=== PATIENT | male | born 1950 | race Caucasian/White ===

== ENCOUNTER 2018-01-08 11:01 | Outpatient (CLI) | payer MEDICARE ==
[~2018-01-08] VITALS: Ht 172.7 cm; Wt 79.5 kg
--- NOTE | ~2018-01-08 | HEMODYNAMI ---
PATIENT:KIN THOMASON MEDICAL RECORD: [id number] : 48 LOCATION:[facility] ADMISSION DATE: 01/08/18 Generatedon:01/08/201814:28 Patient name: KIN THOMASON Patient #: [id number] SSN: DO B: 1950 Date of study: 01/08/2018 Page: Of Hemodynamic Procedure Report Patient Data Patient Demographics Procedure consent was obtained First Name: KIN Gender: Male Last Name: PADDY : 1950 [facility] Initial: GORGE Age: 67 year(s) Patient #: [id number] Race: Unknown Additional ID: [id number] Contact details [address]: [address] [place] [address] State: [place] City: [place] Zip code: [address] Past Medical History Allergies: No known allergies Admission Admission Data Admission Date: 01/08/2018 Admission Time: 11:01 Height (in.): 68 BSA: 1.93 (m2) Height (cm.): 172.72 BMI: 26.61 (kg/m2) Weight (lbs.): 175 Weight (kg.): 79.38 Procedure Procedure Types Cath Procedure Diagnostic Procedure LHC LHC w/Coronaries Sedation Charges Moderate Sedation up to 30 minutes PCI Procedure Coronary Stent Coronary Stent Initial Procedure Description Procedure Date Procedure Date: 01/08/2018 Procedure Start Time: 13:40 Procedure End Time: 14:24 Procedure Staff Name Function Onofre Nelson MD Performing Physician Marian Hope RT Monitor Trevon Mcdaniels RN Nurse Froylan Santana RN Nurse Margareth Poe RT Scrub Procedure Data Cath Procedure Fluoroscopy Diagnostic fluoroscopy Total fluoroscopy Time: time: 16.6 min 16.6 min Diagnostic fluoroscopy Total fluoroscopy dose: dose: 1594 mGy 1594 mGy Contrast Material Contrast Material Type Amount (ml) Isovue 300 148 Entry Location Entry Primary Successful Side Size Upsize Upsize Entry Closure Sharif ccessful Closure Location (Fr) 1 (Fr) 2 (Fr) Remarks Device Remarks Radial Right 6 Fr Mechanical artery Short Compression Femoral Right 6 Fr Exoseal artery Short Estimated blood loss: 5 ml Diagnostic catheters Device Type Used For End Catheter Placement DIAGNOSTIC [place] 110cm 5 Multi-vessel Fr catheter ([id number]) Angiography DIAGNOSTIC JL 3.5 5Fr Left Coronary catheter ([id number]) Angiography Procedure Complications No complications Procedure Medications Medication Administration Route Dosage Oxygen etCO2 Nasal cannula 2 l/min Heparin Flush Bag added to field 2 bags (1000units/500ml NS) 0.9% NaCl I.V. 100 ml/hr Radial Cocktail added to field 1 syringe (Verapomil 2mg/Nitro 400mcg/Heparin 1500units) Fentanyl I.V. 50 mcg Versed I.V. 1 mg Radial Cocktail I.A. 1 syringe (Verapomil 2mg/Nitro 400mcg/Heparin 1500units) Fentanyl I.V. 50 mcg Versed I.V. 1 mg Fentanyl I.V. 50 mcg Fentanyl I.V. 50 mcg Heparin Bolus I.V. 4000 units Integrilin (Bolus I.V. 7.3 ml 2mg/ml) Brilinta P.O. 180 mg Integrilin (Bolus wasted 2.7 ml 2mg/ml) Hemodynamics Rest BSA: 1.93 (m2) O2 Consumption: Estimated: 214.57 (ml/min) O2 Consumption indexed : Estimated:111.18 (ml/min/m) Heart Rate: 57 (bpm) Pressure Samples Time Site Value (mmHg) Purpose Heart Use Rate(bpm) 13:45 LV 103/34,13 Snapshot 60 13:45 AO 95/58(76) Pullback 65 13:45 LV 90/5,16 Pullback 65 Gradients Valve Time Site 1 Site 2 Mean SEP/DFP Peak To Heart Use (mmHg) (sec/min) Peak Rate (mmHg) (bpm) Aortic 13:45 LV AO 0 13 0 65 90/5,16 95/58(76) Calculations Valve P-P Mean Valve Index Valve Source Name Gradient Area Flow (cm2) Aortic 0 0 0 0 Snapshots Pre Cath Intra NCS Post Cath Vital Signs Time Heart Resp SPO2 etCO2 NIBP (mmHg) Rhythm Pain Sedation Rate (ipm) (%) (mmHg) Status Level (bpm) 13:27:00 56 16 99 0 141/80(110) NSR 0 (11) 10(A) , No pain 13:31:04 54 13 99 0 117/80(93) NSR 0 (11) 10(A) , No pain 13:35:12 54 10 100 29.9 134/74(108) NSR 0 (11) 10(A) , No pain 13:39:24 58 14 98 13.5 99/67(75) NSR 0 (11) 10(A) , No pain 13:43:27 55 10 99 29.9 108/68(86) NSR 0 (11) 10(A) , No pain 13:47:39 73 17 99 14.2 100/54(74) NSR 0 (11) 10(A) , No pain 13:51:47 71 16 97 11.9 107/49(67) NSR 0 (11) 10(A) , No pain 13:55:59 77 18 99 38.1 109/49(80) NSR 0 (11) 10(A) , No pain 14:00:09 73 16 99 39.6 105/57(86) NSR 0 (11) 10(A) , No pain 14:05:06 67 17 100 40.4 119/66(83) NSR 0 (11) 10(A) , No pain 14:09:18 70 17 100 22.4 110/61(103) NSR 0 (11) 10(A) , No pain 14:13:28 69 16 98 40.4 106/56(67) NSR 0 (11) 10(A) , No pain 14:17:33 65 16 100 9.7 104/69(90) NSR 0 (11) 10(A) , No pain 14:23:46 64 16 94 0 116/71(91) NSR 0 (11) 10(A) , No pain Medications Time Medication Route Dose Verified Delivered Reason Not es Effectiveness by by 13:31:41 Oxygen etCO2 2 l/min Onofre Lester Per physician Nasal St Mitch Mcdaniels RN cannula 13:31:49 Heparin Flush added 2 bags Onofre Lester used for Bag to [facility] Mitch Mcdaniels RN procedure (1000units/500ml field NS) 13:31:57 0.9% NaCl I.V. 100 Onofre Lester Per physician ml/hr [facility] Mitch Mcdaniels RN, MD 13:35:11 Fentanyl I.V. 50 mcg Onofre Lester for sedation [facility] Mitch Mcdaniels RN, MD 13:35:17 Versed I.V. 1 mg Onofre Lester for sedation [facility] Mitch Mcdaniels RN, MD 13:42:04 Radial Cocktail added 1 Onfore Lester used for (Verapomil to syringe [facility] Mitch Mcdaniels sheet metal contractor 2mg/Nitro field GRAMAJO 400mcg/Heparin 1500units) 13:44:21 Radial Cocktail I.A. 1 Onofre Onofre for (Verapomil syringe [facility] Meyer vasodilation 2mg/Nitro MD GRAMAJO 400mcg/Heparin 1500units) 13:46:01 Fentanyl I.V. 50 mcg Onofre Lester for sedation [facility] Mitch Mcdaniels RN, MD 13:46:05 Versed I.V. 1 mg Onofre Lester for sedation [facility] Mitch Mcdaniels RN, MD 14:00:16 Heparin Bolus I.V. 4000 Onofre Longoriay for units [facility] Mitch Mcdaniels RN anticoagulation 14:00:29 Integrilin I.V. 7.3 ml Onofre Lester for (Bolus 2mg/ml) [facility] Mitch Mcdaniels RN antiplatelet MD therapy 14:04:52 Fentanyl I.V. 50 mcg Onofre Lester for sedation St Mitch Mcdaniels RN, MD 14:18:01 Fentanyl I.V. 50 mcg Onofre Lester for sedation [facility] Mitch Mcdaniels RN, MD 14:24:55 Brilinta P.O. 180 mg Onofre Lester for [facility] Mitch Mcdaniels RN antiplatelet MD therapy 14:25:56 Integrilin wasted 2.7 ml Onofre Lester for (Bolus 2mg/ml) [facility] Mitch Mcdaniels RN antiplatelet MD therapy Procedure Log Time Note 13:24:42 Patient Weight : 175 lbs 13:24:50 Patient Height : 68 inches 13:25:22 Diagnostic Cath status Elective 13:25:25 Marian Hope RT(R) sent for patient. Start room use. 13:25:26 Time tracking: Regular hours (M-F 7:00 - 5:00) 13:25:32 Plan of Care:Hemodynamics will remain stable., Cardiac rhythm will remain stable., Comfort level will be maintained., Respiratory function will remain adequate., Patient/ family verbilizes understanding of procedure., Procedure tolerated without complication., Recovers from procedure without complications.. 13:25:36 Patient received from Pre/Post Procedure Room to [facility] 2 Alert and oriented. Tansferred to table in Supine position. 13:25:38 Warm blankets applied, and brian hugger turned on for patient comfort. 13:25:38 Correct patient and procedure confirmed by team. 13:25:40 Signed procedure consent form obtained from patient. 13:25:41 ECG and BP/O2 sat monitors applied to patient. 13:25:43 Vital chart was started 13:26:45 Baseline sample Acquired. 13:26:52 Rhythm: sinus rhythm 13:26:54 Full Disclosure recording started 13::33 H&P Date Dictated: 01/03/2018 Within 30 days and on chart., H&P Addendum completed by physician on day of procedure. (MUST COMPLETE FOR ALL OUTPATIENTS). 13:27:35 Pre-procedure instructions explained to patient. 13:27:37 Family in waiting room. 13:27:39 Patient NPO since Midnight. 13:27:46 Patient allergic to No known allergies 13:27:50 Is the patient allergic to Iodine/contrast media? No. 13:27:51 Was the patient premedicated? Yes 13:27:53 Is patient on blood thinner?No 13:27:55 Patient diabetic? Yes. 13:27:57 If diabetic: On Metformin? Yes 13:28:00 If on Metformin: Last Dose? 01/07/2018 13:28:05 Snore? Yes 13:28:06 Sleep apnea? No 13:28:10 Dentures? No ? 13:28:24 IV patent on arrival in right antecubital with 0.9% NaCl at O. 13:28:28 Lab results completed and on chart. 13:28:32 Right Radial & Right Groin area was prepped with chlora-prep and draped in sterile fashion 13:28:33 Alarms reviewed by R. N. 13:28:34 Sharps counted by scrub and verified by R.N. 13:28:35 Physician paged 13:31:41 Oxygen 2 l/min etCO2 Nasal cannula was administered by Trevon Mcdaniels RN; Per physician; 13:31:49 Heparin Flush Bag (1000units/500ml NS) 2 bags added to field was administered by Trevon Mcdaniels RN; used for procedure; 13:31:57 0.9% NaCl 100 ml/hr I.V. was administered by Trevon Mcdaniels RN; Per physician; 13:32:01 Physician arrived 13:32:01 --------ALL STOP TIME OUT------ 13:32:03 Final Timeout: patient, procedure, and site verified with staff and physician. All members of the team are in agreement. 13:32:05 Right Radial & Right Groin site verified by team. 13:32:08 Physical assessment completed. ASA score P 2 - A patient with mild systemic disease as per Onofre Nelson MD. 13:32:11 Sedation plan: IV Moderate Sedation Medication:Versed, Fentanyl 13:32:36 Use device set Radial Dx or PCI 13:32:37 ACIST Syringe (64901) opened to sterile field. 13:32:37 Medline Cath Pack ([id number]) opened to sterile field. 13:32:38 Bag Decanter (2002S) opened to sterile field. 13:32:38 DIAGNOSTIC WIRE .035 260cm J wire (809712) opened to sterile field. 13:32:39 ACIST Hand Control (29877) opened to sterile field. 13:32:39 ACIST Manifold (24836) opened to sterile field. 13:32:40 Tegaderm 4 x 4 (1626W) opened to sterile field. 13:32:41 MBrace Wrist Support ([id number]) opened to sterile field. 13:32:43 SHEATH 6Fr Prelude Radial ([id number]) opened to sterile field. 13:35:11 Fentanyl 50 mcg I.V. was administered by Trevon Mcdaniels RN; for sedation; 13:35:17 Versed 1 mg I.V. was administered by Trevon Mcdaniels RN; for sedation; 13:39:04 Zero performed for pressure channel P1 13:40:46 Procedure started. 13:40:53 Local anesthetic to right radial artery with Lidocaine 2% by Onofre Nelson MD.INITIAL ACCESS ONLY 13:41:22 A 6 Fr Short sheath was inserted into the Right Radial artery 13:42:04 Radial Cocktail (Verapomil 2mg/Nitro 400mcg/Heparin 1500units) 1 syringe added to field was administered by Trevon Mcdaniels RN; used for procedure; 13:44:21 Radial Cocktail (Verapomil 2mg/Nitro 400mcg/Heparin 1500units) 1 syringe I.A. was administered by Onofre Nelson MD; for vasodilation; 13:44:23 A DIAGNOSTIC [place] 110cm 5 Fr catheter (523491) was advanced over the wire and used for Multi-vessel Angiography. 13:45:41 LV hemodynamics recorded. 13:45:42 LV gram done using MONTANEZ 13:45:45 Injector settings: Ml/sec: 5, Volume: 15, 13:45:53 EF : 55 % 13:46:01 Fentanyl 50 mcg I.V. was administered by Trevon Mcdaniels RN; for sedation; 13:46:05 Versed 1 mg I.V. was administered by Trevon Mcdaniels RN; for sedation; 13:46:15 RCA angiography performed. 13:46:18 Injector settings: Ml/sec: 3, Volume: 6, 13:47:53 Catheter removed. 13:48:51 A DIAGNOSTIC JL 3.5 5Fr catheter ([id number]) was advanced over the wire and used for Left Coronary Angiography. 13:50:30 Catheter removed. unable to cannulate vessel. 13:50:54 GUIDE 6FR EBU 3.5 catheter ([id number]) opened to sterile field. 13:51:37 LCA angiography performed. 13:51:46 Injector settings: Ml/sec: 3, Volume: 6, 13:53:09 Catheter removed. 13:53:10 Proceeding to intervention. 13:53:18 INFLATOR Merit BasixCompak (SA6236) opened to sterile field. 13:53:28 WHISPER 300cm guide wire ([id number]) opened to sterile field. 13:53:42 GUIDE 6FR HS I catheter (LA6HSI) opened to sterile field. 13:53:51 6 Fr hs 1 guide catheter was inserted over the wire 13:57:29 Guide Catheter removed. unable to cannulate vessel. 13:57:56 GUIDE 6FR AR 1.0 catheter (MO8YB47) opened to sterile field. 14:00:16 Heparin Bolus 4000 units I.V. was administered by Trevon Mcdaniels RN; for anticoagulation; 14:00:29 Integrilin (Bolus 2mg/ml) 7.3 ml I.V. was administered by Trevon Mcdaniels RN; for antiplatelet therapy; 14:02:30 6 Fr ar 1 guide catheter was inserted over the wire 14:02:35 Guide Catheter removed. unable to cannulate vessel. 14:02:49 SHEATH 6Fr Prelude ([id number]) opened to sterile field. 14:03:08 Local anesthetic to right femoral artery with Lidocaine 2% by Onofre Nelson MD.ADDITIONAL ACCESS 14:03:22 A 6 Fr Short sheath was inserted into the Right Femoral artery 14:04:02 6 Fr ar 1 guide catheter was inserted over the wire 14:04:52 Fentanyl 50 mcg I.V. was administered by Trevon Mcdaniels RN; for sedation; 14:07:55 whisper wire advanced. 14:12:40 CHOICE PT Extra Support J 300cm guide wire ([id number]) opened to sterile field. 14:13:32 whisper exchanged for choice pt extra support 14:16:07 Inflate balloon Inflation number: 1 A EMERGE OTW 3.0 x 15 balloon ([id number]) was prepped and advanced across the Mid RCA, then inflated to 10 ASIM for 0:30 (min:sec). 14:16:39 Inflation number: 1 The EMERGE OTW 3.0 x 15 balloon ([id number]) was reinflated across the Prox RCA, to 10 ASIM for 0:30 (min:sec). 14:17:25 Balloon removed over the wire. 14:18:01 Fentanyl 50 mcg I.V. was administered by Trevon Mcdaniels RN; for sedation; 14:20:22 Place stent Inflation Number: 2 A INTEGRITY OTW 3.5 X 15 stent ([id number]) was prepped and advanced across the Prox RCA. The stent was deployed at 14 ASIM for 0:30 (min:sec). 14:20:27 Stent catheter was removed intact over wire. 14:20:29 Wire removed. 14:20:30 Guide catheter removed. 14:20:34 TR BAND Standard ([id number]) opened to sterile field. 14:20:41 EXOSEAL 6Fr (EX600) opened to sterile field. 14:21:09 Sheath removed intact; hemostasis achieved with Exoseal to the Right Femoral artery. 14:21:17 Sheath removed intact; hemostasis achieved with Mechanical Compression to the Right Radial artery. 14:21:19 Procedure ended.(Physican Out) 14:: Fluoroscopy time 16.60 minutes. :: Fluoroscopy dose: 1594 mGy 14:22:26 Flurop Dose total: 1594 14:23: Contrast amount:Isovue 300 148ml. 14:23:04 Sharps counted by scrub and verified by R.N. 14:23:06 TR band inflated with 10cc of air. 14:23:08 Insertion/operative site no bleeding no hematoma. 14:23:19 Post-op/insertion site Right Femoral artery dressed using a 4 x 4 and Tegaderm. 14:23:24 Post right radial artery:stable 14:23:25 Post Procedure Pulses reassessed and unchanged 14:23:29 Post procedure rhythm: unchanged. 14:23:31 Estimated blood loss: 5 ml 14::33 Post procedure instruction explained to patient.Patient verbalizes understanding. 14::33 Patient needs reinforcement of post procedure teaching. 14::54 Procedure type changed to Cath procedure, Diagnostic procedure, LHC, LHC w/Coronaries, Sedation Charges, Moderate Sedation up to 30 minutes, PCI procedure, Coronary Stent, Coronary Stent Initial 14::54 Procedure and supply charges have been captured, reviewed, submitted and are correct. 14:23:59 Procedure Complication : No complications 14:24: Vital chart was stopped 14:24:02 See physician's report for complete and final results. 14:24:04 Report given to Pre/Post Procedure Room. 14:24:07 Patient transfered to Pre/Post Procedure Room with Stretcher. 14:24:10 Procedure ended. 14:24:10 Full Disclosure recording stopped 14:24:47 ACC-PCI Only Patient was given prescriptions, or instructed by Onofre Nelson MD to start/continue the following medications upon discharge: Brilinta 14:24:51 End room use (Document Last) 14:24:55 Brilinta 180 mg P.O. was administered by Trevon Mcdaniels RN; for antiplatelet therapy; 14:25:56 Integrilin (Bolus 2mg/ml) 2.7 ml wasted was administered by Trevon Mcdaniels RN; for antiplatelet therapy; Intervention Summary Intervention Notes Time ActionType Lesion and Equipment Action# Pressure Duration Attributes Used 14:16:07 Inflate Mid RCA EMERGE OTW 1 10 00:30 balloon 3.0 x 15 balloon ([id number]) 14:16:39 Reinflate Prox RCA EMERGE OTW 1 10 00:30 balloon 3.0 x 15 balloon ([id number]) 14:20:22 Place stent Prox RCA INTEGRITY 2 14 00:30 OTW 3.5 X 15 stent ([id number]) Device Usage Item Name Manufacture Quantity Catalog Number Hospital Part Current Minimal Lot# / Charge Number Stock Stock Serial# Code ACIST Syringe Acist 1 33720 538246 782923 592453 20 (95334) Medical Systems Inc Medline Cath Cardinal 1 [id number] 546647 98766 601371 5 Pack Health ([id number]) Bag Decanter Microtek 1 035331 50907 105012 5 () Medical Inc. DIAGNOSTIC WIRE St Zay 1 548894 690251 599220 929466 30 .035 260cm J wire (656522) ACIST Hand Acist 1 40375 515411 033754 966234 5 Control (36622) Medical Systems Inc ACIST Manifold Acist 1 62168 868095 642715 552249 5 (52616) Medical Systems Inc Tegaderm 4 x 4 3M 1 1626W 591690 431751 519546 5 (1626W) MBrace Wrist Advanced 1 140-0250-00 951798 50145 129162 5 Support Vascular (679856794) Dynamics SHEATH 6Fr Merit 1 [id number] 154178 902124 879365 5 Prelude Radial Medical ([id number]) DIAGNOSTIC Terumo 1 40-8913 283301 268183 963380 5 [place] 110cm 5 Fr catheter (890725) DIAGNOSTIC JL Cardinal 1 [id number] 291087 920576 852576 5 3.5 5Fr Health catheter (763032S) GUIDE 6FR EBU Medtronic 1 [id number] 399597 89234 540939 3 3.5 catheter (BQ5IBZ60) INFLATOR Merit Merit 1 LP0064 086220 270693 342635 15 CulturaliteflNeurolixis, Inc. Medical (CO8338) WHISPER 300cm Rousseau 1 [id number] 067890 123640 481674 5 guide wire Vascular (6465004VC) GUIDE 6FR HS I Medtronic 1 LA6HSI 500668 78613 899931 1 catheter (LA6HSI) GUIDE 6FR AR Medtronic 1 [id number] 158166 04268 494388 1 1.0 catheter (SE1XH21) SHEATH 6Fr Merit 1 [id number] 337614 297474 855428 5 Prelude Medical ([id number]) CHOICE PT Extra [place] 1 [id number] 067194 613090 451452 5 Support J 300cm Scientific guide wire (0840905S2) EMERGE OTW 3.0 [place] 1 [id number] 015215 903217 642972 5 [id number] x 15 balloon Scientific ([id number]) INTEGRITY OTW Medtronic 1 [id number] 035227 335770 6 [id number] 3.5 X 15 stent ([id number]) TR BAND Terumo 1 [id number] 547145 619066 140765 40 Standard ([id number]) EXOSEAL 6Fr Cardinal 1 EX600 705791 162675 952118 10 (EX600) Health Signature Audit [place] Stage Time Signature Unsigned Intra-Procedure 01/08/2018 Marian Hope 2:28:52 PM RT(R) Signatures Monitor : Marian Hope RT Signature : Date : Time : [address] [place] [address]
--- NOTE | ~2018-01-08 | OP ---
PATIENT NAME: KIN THOMASON MEDICAL RECORD: [id number] :48 LOCATION:D.CAT ADMISSION DATE: SURGEON: ANUJ CASTELLON MD DATE OF OPERATION: 01/08/2018 PROCEDURE: Left heart catheterization, selective coronary angiography, right radial approach. CATHETERS: Radial sheath, [place] catheter. Proceeded to INDUSTRIAL TRACTOR DRIVER stenting to the right after changing to a right femoral approach. FINDINGS: Left ventriculography in 30-degree MONTANEZ view. Normal wall motion, normal systolic function. CORONARY ANATOMY: LEFT MAIN: Left main is free of disease. LAD: Free of disease in the diagonal system. CIRCUMFLEX: Free of disease in the marginal system. RIGHT CORONARY ARTERY: Has about 80% stenosis correlating nicely with the nuclear stress test. DESCRIPTION OF PROCEDURE: After multiple guide attempts were made to intervene from the radial approach, then to the right femoral artery approach, easily crossed the lesion with a Whisper wire. Then, using a 3.0 x 15 [place] balloon as an exchange catheter, we placed a PT export wire. The balloon was used predeployment up to 10 atmospheres for 45 seconds. Finally, stent was deployed with a 3.5 x 15 mm Integrity nondrug eluting stent up to 14 atmospheres. Final injection shows excellent resolution of an 80% stenosis, no significant residual. ALBA flow was 3 throughout the procedure. Brilinta was loaded in the lab. Sheath was closed with ExoSeal device. TRANSINT:[id number] Voice Confirmation ID: [id number] DOCUMENT ID: [id number] ANUJ CASTELLON MD at 1254 CC: [id number] DICTATION DATE: 01/08/18 1432 CIRCLE EDGER: 01/08/18 1525 DEP CLI 01/08/18 [id number] [place] [address]
[2018-01-08] MEDS ORDERED: HYDROCODONE-APA1 TAB PO (11:39)
[2018-01-08] MEDS ORDERED: ZANAFLEX4 MG PO (11:40)
[2018-01-08] MEDS ORDERED: PRINZIDE 20/12.1 TA1 PO (11:40)
[2018-01-08] MEDS ORDERED: GLUCOPHAGE500 MG PO (11:41)
[2018-01-08] MEDS ORDERED: NEURONTIN600 MG PO (11:42)
[2018-01-08] MEDS ORDERED: COREG25 MG PO (11:42)
[2018-01-08] MEDS ORDERED: FENOFIBRATE160 MG PO (11:42)
[2018-01-08] MEDS ORDERED: ZOCOR40 MG PO (11:42)
[2018-01-08 12:09] VITALS: BP 118/70; Ht 172.7 cm; Wt 79.5 kg
[2018-01-08 12:25] LABS: BASOPHILS 0.5 % (0-2); EOSINOPHILS 3.3 % (0-7); HEMATOCRIT 42.9 % (42.0-54.0); HEMOGLOBIN 14.8 g/dL (13.5-17.5); IMMATURE GRANULOCYTES 0.2 % (0-5); LYMPHOCYTES 19.6 % (15-50); MCH 31.9 pg (26.0-34.0); MCHC 34.5 g/dL (31.0-37.0); MCV 92.5 fL (80.0-100.0); MEAN PLATELET VOLUME 11.6 fL (7.4-10.4); MONOCYTES 7.7 % (2-11); NEUTROPHILS 68.7 % (40-80); PLATELET COUNT 111 10x3/uL (130-400); RBC 4.64 10x6/uL (4.20-6.10); WBC 6.4 10x3/uL (4.8-10.8)
[2018-01-08 12:39] LABS: CALC OSMOLALITY 287 mosm/kg (275-300); CARBON DIOXIDE 31.2 mmol/L (21.0-32.0); CHLORIDE - SERUM 105 mmol/L (98-107); CREATININE - SERUM 0.8 mg/dL (0.6-1.3); GLUCOSE 94 mg/dL (74-106); POTASSIUM - SERUM 3.9 mmol/L (3.5-5.1); SODIUM 143 mmol/L (136-145); UREA NITROGEN 20 mg/dL (7-18); eGFR NON AFRICAN AMERICAN > 90 mL/min (90-120)
[2018-01-08] MEDS ORDERED: BRILINTA90 MG PO (14:42)
== END 2018-01-08 18:40 | disposition home or self-care (01) ==
LOC: D.CATH 11:01
PROVIDERS: Internal Medicine Interventional Cardiology
DX: I25.119 Atherosclerotic heart disease of native coronary artery with unspecified angina pectoris (principal); Z01.812 Encounter for preprocedural laboratory examination

== ENCOUNTER 2018-12-10 06:28 | Day surgery (SDC) | payer OTHER ==
[~2018-12-10] VITALS: Ht 172.7 cm; Wt 82.6 kg
[~2018-12-10 06:28] MED LIST: BAYER CHEWABLE81 MG PO; BRILINTA90 MG PO; COREG25 MG PO; FENOFIBRATE160 MG PO; GLUCOPHAGE500 MG PO; HYDROCODONE-APA1 TAB PO; NEURONTIN600 MG PO; PRINZIDE 20/12.1 TA1 PO; ZANAFLEX4 MG PO; ZOCOR40 MG PO
[2018-12-10 06:54] LABS: HEMOGLOBIN 15.7 g/dL (13.5-17.5); MCH 32.4 pg (26.0-34.0); MCHC 34.9 g/dL (31.0-37.0); MCV 92.8 fL (80.0-100.0); MEAN PLATELET VOLUME 11.2 fL (7.4-10.4); RBC 4.85 10x6/uL (4.20-6.10); RDW 12.7 % (11.5-14.5); WBC 5.9 10x3/uL (4.8-10.8)
[2018-12-10 07:03] LABS: CALC OSMOLALITY 289 mosm/kg (275-300); CHLORIDE - SERUM 106 mmol/L (98-107); CREATININE - SERUM 0.9 mg/dL (0.6-1.3); GLUCOSE 93 mg/dL (74-106); POTASSIUM - SERUM 3.1 mmol/L (3.5-5.1); SODIUM 145 mmol/L (136-145); UREA NITROGEN 14 mg/dL (7-18); eGFR NON AFRICAN AMERICAN 89 mL/min (90-120)
[2018-12-10 08:11] VITALS: BP 122/61; Ht 172.7 cm; Wt 82.6 kg
--- NOTE | 2018-12-10 12:31 | NUR ---
1200 PT VOIDED LARGE AMT OF URINE. INSTRUCTIONS GIVEN AND SITZ BATH BAILEY GIVEN TO FAMILY WITH INSTRUCTIONS. 1210 IV REMOVED AND DRESSING APPLIED.
--- NOTE | 2018-12-11 17:32 | HP ---
PATIENT: KIN THOMASON MEDICAL RECORD: [id number] ACCOUNT: [id number] LOCATION:[facility] : 48 ADMISSION DATE: 12/10/18 PCP: RHODA ESPARZA MD HISTORY AND PHYSICAL EXAMINATION HISTORY OF PRESENT ILLNESS: The patient has reportedly a polyp on a hemorrhoid. The risks, possible complications and alternatives to the single-column hemorrhoidectomy were explained to the patient. He elects to proceed. We obtained a cardiac clearance with Dr. Sanches. PAST MEDICAL AND SURGICAL HISTORY: Coronary arteriosclerosis, hypercholesterolemia, hypertension, type 2 diabetes mellitus. HOME MEDICATIONS: Please see the nursing list. ALLERGIES: No known drug allergies. PHYSICAL EXAMINATION: GENERAL: The patient does not appear acutely ill. He does not appear chronically ill. VITAL SIGNS: Reviewed. EARS: External ears appear normal. EYES: Extraocular movements are intact. NECK: Trachea is midline. CHEST: No intercostal retractions. PULMONARY: Nonlabored, no stridor. ABDOMEN: Nontender. EXTREMITIES: No peripheral cyanosis. ANAL EXAM: The patient is unable to produce the polyp on a hemorrhoid. I will be able to analyze this further once the patient is asleep in a lithotomy position. IMPRESSION: Polyp on the external hemorrhoid. PLAN: Will be single-column hemorrhoidectomy. TRANSINT:[id number] Voice Confirmation ID: [id number] DOCUMENT ID: [id number] CHAU CHRISTENSEN MD at 1732 CC: MARIAN LEE ST JOHN, GREGORY A MD and RHOAD ESPARZA MD [id number] DICTATION DATE: 12/10/1814 PAINT AND TABLE EDGER: 12/10/18 0929 [facility] 12/10/18 [facility] [address] [place] [address]
--- NOTE | 2018-12-12 16:07 | OP ---
PATIENT NAME: KIN THOMASON MEDICAL RECORD: [id number] :48 LOCATION:[facility] ADMISSION DATE: SURGEON: CHAU CHRISTENSEN MD DATE OF OPERATION: 12/10/2018 PREOPERATIVE DIAGNOSIS: Anal polyp on a hemorrhoid. POSTOPERATIVE DIAGNOSIS: Low rectal polyp. PROCEDURE: Transanal excision of low rectal polyp. SURGEON: Chau Christensen MD CRAP SHOOTER: None. BLOOD LOSS: Minimal. ANESTHESIA: General. COMPLICATIONS: None. The risks, possible complications and alternatives to the procedure were explained to the patient. He elects to proceed. The discussion specifically included, but was not limited to, bleeding requiring emergency reoperation, infection, as well as regrowth of the polyp. OPERATIVE COURSE: The patient was conveyed to the operating room electively on 12/10/2018. General anesthesia was induced by the anesthesia staff. The patient was placed in the lithotomy position. The buttocks were taped laterally. The anus and the buttocks were sterilely prepped and draped. U-shaped anal retractors were placed. I examined the internal and external hemorrhoids. At 12 o'clock, there was a very low lying pedunculated polyp. This was adjacent to an internal hemorrhoid. I was able to grasp this with a José Antonio. I was able to excise it with the Harmonic scalpel. The mucosa was then approximated with interrupted 3-0 Vicryls. At the anal verge, there was another polypoid lesion that likely represents a skin tag. This was excised with the Harmonic scalpel as well. I then closed the excisional defect with a horizontal mattress 3-0 Vicryl. Gelfoam was applied within the anus and lower rectum. A combination of Marcaine and steroid preparation were used to infiltrate the perianal tissues. A topical anesthetic cream was applied to the external hemorrhoids. The patient was then extubated and conveyed to post-anesthesia care unit where he was in stable condition. I will see him in the office in 2-3 weeks. He is being dismissed home on [facility] as well as [place]. TRANSINT:[id number] Voice Confirmation ID: [id number] DOCUMENT ID: [id number] OPERATIVE REPORT [id number] KIN THOMASON CHAU CHRISTENSEN MD at 1607 CC: MARIAN LEE ST JOHN, GREGORY A MD and RHODA ESPARZA MD [id number] DICTATION DATE: 12/10/18 1027 ELECTION SUPERVISOR: 12/10/18 1123 [facility] 12/10/18 [address] [place] [address]
== END 2018-12-10 12:30 | disposition home or self-care (01) ==
LOC: D.OPS 06:28 → D.PAN 09:00 → D.OPS 09:00 → D.PAN 09:45 → D.OPS 09:45
PROVIDERS: Anesthesiology; ATTEND Surgery
DX: K62.1 Rectal polyp (principal); K64.4 Residual hemorrhoidal skin tags; K64.8 Other hemorrhoids; Z01.812 Encounter for preprocedural laboratory examination